=== PATIENT | female | born 1935 | race Asian ===

== ENCOUNTER 2023-12-07 12:44 | Emergency (ER) | payer OTHER ==
[2023-12-07 12:57] VITALS: BP 145/64; PULSE 88; RESP 18; TEMP 98.1; BMI 21.4
== END 2023-12-07 16:09 | disposition home or self-care (01) ==
LOC: JER 12:44
PROC: 0HQ0XZZ Repair Scalp Skin, External Approach (ICD-10-PCS; principal; 2023-12-07)
DX: S01.01XA Laceration without foreign body of scalp, initial encounter (principal); W01.198A Fall on same level from slipping, tripping and stumbling with subsequent striking against other object, initial encounter
CPT/HCPCS: 70450-TC; 72125-TC; 99284-25

== ENCOUNTER 2023-12-14 09:46 | Emergency (ER) | payer OTHER ==
[2023-12-14 09:57] VITALS: BP 172/67; PULSE 78; RESP 16; TEMP 98.1; BMI 21.4
== END 2023-12-14 12:03 | disposition home or self-care (01) ==
LOC: JERFT 09:46
DX: Z48.02 Encounter for removal of sutures (principal)
CPT/HCPCS: 99281-25